=== PATIENT | female | born 1955 | race Caucasian/White ===

== ENCOUNTER → 2024-01-20 09:55 | Outpatient (REF) | payer MEDICARE, OTHER, SELFPAY | LOC: WDC 09:55 | PROVIDERS: ATTENDING PHYSICIAN Internal Medicine | DX: R93.89 Abnormal findings on diagnostic imaging of other specified body structures (principal); Z12.31 Encounter for screening mammogram for malignant neoplasm of breast; R10.9 Unspecified abdominal pain | CPT/HCPCS: 76700; 76830; 76856; 77063; 77067 ==

== ENCOUNTER → 2024-02-20 12:46 | Outpatient (REF) | payer MEDICARE, OTHER, SELFPAY | LOC: RAD 12:46 | PROVIDERS: ATTENDING PHYSICIAN Internal Medicine | DX: E04.1 Nontoxic single thyroid nodule (principal) | CPT/HCPCS: 76536 ==

== ENCOUNTER → 2024-08-07 14:57 | Outpatient (REF) | payer MEDICARE, OTHER, SELFPAY | LOC: RAD 14:57 | PROVIDERS: ATTENDING PHYSICIAN Internal Medicine Cardiovascular Disease; FAMILY PHYSICIAN Internal Medicine | DX: K76.89 Other specified diseases of liver (principal); R09.89 Other specified symptoms and signs involving the circulatory and respiratory systems | CPT/HCPCS: 93880 ==

== ENCOUNTER → 2024-12-18 15:29 | Outpatient (REF) | payer MEDICARE, OTHER, SELFPAY | LOC: RAD 15:29 | PROVIDERS: ATTENDING PHYSICIAN Obstetrics & Gynecology; FAMILY PHYSICIAN Family Medicine | DX: R93.89 Abnormal findings on diagnostic imaging of other specified body structures (principal) | CPT/HCPCS: 76830; 76856 ==

== ENCOUNTER → 2024-12-24 09:48 | Outpatient (REF) | payer MEDICARE, OTHER, SELFPAY | LOC: HWRAD 09:48 | PROVIDERS: ATTENDING PHYSICIAN Family Medicine | DX: K76.0 Fatty (change of) liver, not elsewhere classified (principal); E04.2 Nontoxic multinodular goiter | CPT/HCPCS: 76536; 76700 ==

== ENCOUNTER → 2025-02-01 13:36 | Outpatient (REF) | payer MEDICARE, OTHER, SELFPAY | LOC: WDC 13:36 | PROVIDERS: ATTENDING PHYSICIAN Family Medicine | DX: Z12.31 Encounter for screening mammogram for malignant neoplasm of breast (principal); Z12.39 Encounter for other screening for malignant neoplasm of breast | CPT/HCPCS: 77063; 77067 ==